=== PATIENT | female | born 1995 | race Caucasian/White ===

== ENCOUNTER 2023-06-06 11:48 | Emergency (ER) | payer MEDICAID, SELFPAY ==
[2023-06-06 12:00] VITALS: BP 108/68; PULSE 66; RESP 16; TEMP 35.9; O2SAT 100
--- NOTE | 2023-06-06 12:15 | DI.RAD_ITS ---
Exam(s) XR WRIST LT COMPLETE EXAM: XR WRIST LT COMPLETE CLINICAL HISTORY: pain. TECHNIQUE: 2D digital imaging was performed. Three views. COMPARISON: No exams were available for comparison FINDINGS: BONES: Nondisplaced ulnar styloid fracture. No additional fractures. No bony destructive lesion is seen. JOINTS: The carpal bones are normally aligned. SOFT TISSUE: Normal. IMPRESSION: Ulnar styloid fracture. DATA REPOSITORY: RADIATION DOSE DELIVERED:
--- NOTE | 2023-06-06 12:27 | ED.GENADUL_ITS ---
Discharge Plan Disposition Patient Disposition: Home Condition: Stable Discharge Details Clinical Impression: Left wrist sprain Primary Care Provider: Jami,Local ED Provider: Mike Brunson Home Meds and New Rx's Prescriptions: Continued L norgest/e.estradiol-e.estrad [LoSeasonique] 1 EACH tablets,dose pack,3 month 1 tab-cap PO DAILY Qty: 1 3RF propranolol 10 MG tablet 10 mg PO HS 45 Days Qty: 45 5RF bupropion HCl (smoking deter) 150 MG tablet extended release 12 hr 300 mg PO DAILY 45 Days Qty: 90 5RF Discharge Instructions Instructions: Wrist Sprain (ED) Additional Instructions: wear the splint for comfort as needed if you aren't better in 1-2 weeks follow up with your primary care provider if you feel more ill, have new pain such as chest pain or difficulty breathing return to the emergency department Medical Decision Making 27 yo female comes in with 2 months of left medial wrist pain. She states it started after a fall from standing and landed on her left wrist, no loc or head trauma. She states since then when she lifts heavy things up she has medial left wrist pain. She arrives stable in no distress. She has no significant palpable or visible deformity of the left wrist, intact sensation in the hand with full rom though does have pain in the medial left wrist. Suspect strain of the wrist vs overuse, will obtain xrays to evaluate for fracture xray on my read shows no acute findings, will place in splint to use for comfort and advised to f/u with either pcp or ortho if pain continues, return precautions given Differential Diagnosis Differential Diagnosis: fracture, contusion, sprain Imaging Data Radiologic Study: Attestation: I personally reviewed and interpreted this imaging study as follows: Imaging: X-Ray My impression: no acute findings HPI General Mode of arrival: ambulatory . Date/Time Provider Initiated Documentation: 06/06/23 11:52 . Limitations to Documentation: no limitations . Information obtained by: patient . History of Present Illness 27 year old F presents to the emergency department with the chief complaint of left wrist pain, described as mild, Quality is described as aching, and is localized to the left and upper extremity. Patient reports no radiation. Patient started experiencing this month(s) (2) and it has been constant. No relieving factors improve symptom(s), No exacerbating factors reported . Patient notes no other symptoms.; denies chest pain, fever/chills and shortness of breath. Patient did receive the following treatments prior to arrival, none Related Data Home Medications Medication Instructions Recorded Confirmed L norgest/E estradiol-E estrad 0.1 1 tab-cap PO DAILY ##1 18 06/06/23 mg-20 mcg (84)/10 mcg (7) tabs,3mos (LoSeasonique) bupropion HCl (smoking deter) 150 300 mg PO DAILY 45 days #90 12/02/17 06/06/23 mg tablet,12 hr tab-caps sustained-release(smoking deterrent) propranolol 10 mg tablet 10 mg PO HS 45 days #45 tab-caps 12/02/17 06/06/23 Previous Rx's Medication Instructions Recorded L norgest/E estradiol-E estrad 0.1 1 tab-cap PO DAILY ##1 11/14/17 mg-20 mcg (84)/10 mcg (7) tabs,3mos (LoSeasonique) bupropion HCl (smoking deter) 150 300 mg PO DAILY 45 days #90 12/02/17 mg tablet,12 hr tab-caps sustained-release(smoking deterrent) propranolol 10 mg tablet 10 mg PO HS 45 days #45 tab-caps 12/02/17 Allergies Allergy/AdvReac Type Severity Reaction Status Date / Time No Known Drug Allergies Allergy Unverified 11/14/17 11:06 General Stated Complaint: Orthopedic LANE: 4 Review of Systems All systems reviewed & are unremarkable except as noted in HPI and below Constitutional Constitutional: Denies chills, Denies fever(s) and Denies weakness Cardiovascular Cardiovascular: Denies chest pain and Denies dyspnea Respiratory Respiratory: Denies cough and Denies dyspnea Gastrointestinal Gastrointestinal: Denies abdominal pain, Denies nausea and Denies vomiting Musculoskeletal Musculoskeletal: Denies joint swelling Neurologic Neurologic: Denies weakness PFSH All Active Problems (Updated 06/06/23 @ 13:24 by Mike Brunson MD) Left wrist sprain (Acute) Medical History (Updated 06/06/23 @ 13:24 by Mike Brunson MD) Depression Family History Mother No problems noted. Father Alcohol abuse Essential hypertension Mental disorder Social History Smoking risk assessment performed?: No Exam Const General: no acute distress Orientation: alert HENMO Head: normal to inspection Ears: external ears normal General nose exam: external nose normal Mouth: moist mucous membranes Eyes General: appearance normal, both eyes and all related structures Neck Neck: normal visual inspection Resp Effort & Inspection: normal respiratory effort and able to speak in complete sentences Cardio Rate: regular rate Skin General skin exam: no rashes or lesions noted Neuro General: patient alert and patient oriented x3 Extrem General: normal to inspection, full ROM and capillary refill normal Psych Mental Status: mental status grossly normal Course Vital Signs Vital signs: Vital Signs Temperature 35.9 C L 06/06/23 12:00 Pulse 66 06/06/23 12:00 Respiratory Rate 16 06/06/23 12:00 Blood Pressure 108/68 06/06/23 12:00 Pulse Oximetry 100 06/06/23 12:00 Temperature 35.9 C L 06/06/23 12:00 Temperature Source Skin 06/06/23 12:00 Pulse 66 06/06/23 12:00 Respiratory Rate 16 06/06/23 12:00 Blood Pressure 108/68 06/06/23 12:00 Blood Pressure Position Sitting 06/06/23 12:00 Pulse Oximetry 100 06/06/23 12:00 Oxygen Delivery Method Room Air 06/06/23 12:00 Oxygen Flow Rate 0 06/06/23 12:00 Pain Level 8 06/06/23 12:00 Lab/Test Results Lab/Test Results: POC- Test(urine) Negative
== END 2023-06-06 13:36 | disposition home or self-care (01) ==
PROVIDERS: Emergency Provider Emergency Medicine
DX: S52.615A Nondisplaced fracture of left ulna styloid process, initial encounter for closed fracture (principal); W19.XXXA Unspecified fall, initial encounter
CPT/HCPCS: 29125; 81025; 99283; 73110